=== PATIENT | female | born 1965 | race Caucasian/White ===

== ENCOUNTER → 2016-07-16 | Outpatient (CLI) | payer BC | LOC: MC.RAD 11:24 | DX: Z12.31 Encounter for screening mammogram for malignant neoplasm of breast (principal); R92.0 Mammographic microcalcification found on diagnostic imaging of breast ==

== ENCOUNTER → 2016-08-02 | Outpatient (CLI) | payer BC | LOC: MC.RAD 10:18 | DX: R92.0 Mammographic microcalcification found on diagnostic imaging of breast (principal) ==

== ENCOUNTER → 2016-08-07 | Outpatient (CLI) | payer BC | LOC: MC.RAD 06:59 | DX: N60.32 Fibrosclerosis of left breast (principal); R92.0 Mammographic microcalcification found on diagnostic imaging of breast ==

== ENCOUNTER → 2016-09-09 | Outpatient (CLI) | payer BC | LOC: ZCOL.LAB 16:52 | DX: R07.9 Chest pain, unspecified (principal) ==